=== PATIENT | female | born 1935 | race Caucasian/White ===

== ENCOUNTER 2020-04-06 23:57 | Emergency (ER) | payer MEDICARE, SELFPAY ==
--- NOTE | ~2020-04-06 | XR_ITS ---
XR chest 1V portable 04/07/2020 00:45 Indication: Weakness and dyspnea Procedure: AP portable chest Comparison: 07/13/2018 Findings: There is a masslike density in the left lung base, suspicious for malignancy. Heart size no rmal. Right lung clear. No significant effusion or pneumothorax. There are surgical clips in the left axilla. Impression: 1: Masslike density in the left lower lung zone at the left cardiophrenic angle. Differential diagnos is includes focal airspace consolidation although malignancy is not excluded. Consider correlation [facility] CT. Reviewed, dictated and finalized at location A. MCORN THRESHER Impression: 1: Masslike density in the left lower lung zone at the left cardiophrenic angle . Differential diagnosis includes focal airspace consolidation although maligna ncy is not excluded. Consider correlation with CT.
--- NOTE | ~2020-04-06 | CT_ITS ---
EXAMINATION: CT abdomen pelvis wo con DATE: 04/07/2020 00:47 INDICATION: Lower abdominal pain. Back pain. Necrosis to the left foot. TECHNIQUE: Computed tomography (CT) of the abdomen and pelvis was performed without intravenous contr ast. The dose-length product was 406.07 mGy-cm. Automated exposure control and iterative reconstructi on technique were employed. COMPARISON: CT dated 08/01/2018 FINDINGS: Heart size is normal. There is an enlarging mass in the left lower lobe abutting the fissur e measuring 5.3 cm maximum dimension. There is a 9 mm right lower lobe nodule, new, suspicious for me tastatic disease. There is an infrarenal abdominal aortic aneurysm measuring 3.1 cm. The liver, spleen, pancreas, left adrenal gland are unremarkable. There is a small 1.4 cm right adren al gland, likely benign adenoma. Gallbladder is present. There are calcified granulomas in the liver and spleen. Colonic diverticula particularly cyst without evidence for diverticulitis. There is sever e stenosis of the left common iliac and bilateral external iliac arteries and the common femoral liya scott. Occlusion cannot be excluded without contrast. There is coronary atherosclerosis. There are chr onic compression fractures of T11 and L2. There is multilevel anterolisthesis at L3-S1. IMPRESSION: 1. Enlarging left lower lobe mass measuring 5.3 cm, suspicious for bronchogenic carcinoma. New 9 mm r ight lower lobe nodule, possibly metastatic disease. 2: Infrarenal abdominal aortic aneurysm measuring 3.1 cm with extensive atherosclerosis throughout th e abdomen. Reviewed, dictated and finalized at location A. D DESIGNER IMPRESSION: 1. Enlarging left lower lobe mass measuring 5.3 cm, suspicious for bronchogenic carcinoma. New 9 mm right lower lobe nodule, possibly metastatic disease. 2: Infrarenal abdominal aortic aneurysm measuring 3.1 cm with extensive atheros clerosis throughout the abdomen.
[2020-04-06 23:55] VITALS: BP 94/57; PULSE 93; RESP 20; TEMP 36.6; O2SAT 94
[2020-04-07] VITALS (8 sets, daily range): BP systolic 91–141; BP diastolic 51–73; PULSE 75–98; RESP 13–18; TEMP 36.8; O2SAT 93–99
--- NOTE | 2020-04-07 00:10 | ECG_ITS ---
Measurements Intervals [place] Rate: 91 P: 59 CA: 124 QRS: 30 QRSD: 74 T: 66 QT: 363 QTc: 448 Interpretive Statements SINUS RHYTHM WITH SINUS ARRHYTHMIA ATRIAL PREMATURE COMPLEXES LOW QRS VOLTAGE IN PRECORDIAL LEADS CANNOT RULE OUT SEPTAL INFARCT, AGE INDETERMINATE BORDERLINE ST-T WAVE ABNORMALITY- INF/HIGH LAT LEADS BASELINE ARTIFACT- I, III, AVR, AVL, AVF, V3-V6 ABNORMAL ECG Electronically Signed On 04-07-2020 7:17:07 [employer]PER[employer] by Edgard Cerda D.O.
[2020-04-07] MEDS: SODIUM CHLORIDE 0.9% IV 1,000 ML 999 ML IV CONT ×2 (00:27→01:59)
[2020-04-07] MEDS: MORPHINE SULFATE (*CRX) 4 MG/ML INJ IV PUSH (00:27)
[2020-04-07] MEDS: ONDANSETRON INJ 4 MG/2 ML VIAL IV PUSH (00:27)
[2020-04-07 00:30] LABS: Basophils Percent Auto 0.4 % (0.2-1.2); Eosinophils Absolute Auto 0.1 K/mm3 (0-0.3); Eosinophils Percent Auto 0.5 % (0-4.4); Hematocrit 25.5 % (37.0-47.0); Hemoglobin 7.1 g/dL (12.0-15.0); Immature Granulocyte Absolute 0.23 K/mm3 (0.00-0.031); Immature Granulocyte Percent A 2.1 % (0-0.5); Lymphocytes Absolute Auto 0.52 K/mm3 (0.9-3.2); Lymphocytes Percent Auto 4.7 % (18.3-44.2); Mean Corpuscular HGB Conc 27.8 g/dl (32-36); Mean Corpuscular Hemoglobin 25.1 pg (26-34); Mean Corpuscular Volume 90.1 fl (80-100); Mean Platelet Volume 10.2 fl (7.4-10.4); Monocytes Absolute Auto 1.2 K/mm3 (0.1-0.6); Neutrophils Absolute Auto 9.1 K/mm3 (1.3-6.7); Neutrophils Percent Auto 81.3 % (45.5-73.1); Nucleated Red Blood Cells Absolute Auto 0.1 K/mm3 (0.0-0.012); Platelet Count Result 453 k/mm3 (150-375); Red Blood Count 2.83 M/mm3 (4.2-5.4); Red Cell Distribution Width 18.9 % (11.5-14.5); White Blood Count 11.2 K/mm3 (4.5-10.0)
[2020-04-07 00:40] LABS: Prothrombin Time 14.1 Seconds (11.1-14.7)
[2020-04-07 00:41] LABS: Partial Thromboplastin Time 30.8 SECONDS (22.3-36.8)
--- NOTE | 2020-04-07 00:42 | PC.NURSE ---
Patient in CT at this time.
--- NOTE | 2020-04-07 00:49 | PC.NURSE ---
Patient's bedside glucose is 113.
[2020-04-07 00:55] LABS: Atypical Lymphocytes Present; Platelet Estimate Adequate (Adequate)
[2020-04-07 00:56] LABS: Anisocytosis 1+ (NORMAL)
[2020-04-07 01:02] LABS: Glucose Point of Care 113 (65-105)
[2020-04-07 01:03] LABS: Alanine Aminotransferase 32 U/L (4-35); Albumin Level 3.5 g/dL (3.5-5.1); Alkaline Phosphatase 133 U/L (38-126); Anion Gap 13 mmol/L (8-16); Aspartate Amino Transferase 84 U/L (14-36); Bilirubin,Total 0.5 mg/dL (0.2-1.3); Blood Urea Nitrogen 55 mg/dL (7-17); CRP 13.4 mg/dL (<1.0); Calcium 9.5 mg/dL (8.4-10.2); Carbon Dioxide 20 mmol/L (22-30); Chloride 106 mmol/L (98-107); Creatine Kinase 1033 U/L (30-135); Estimated CRCL calculation 9 ml/min; Estimated Glomerular Filt Rate 14; Glucose 103 mg/dL (65-105); Lipase 133 U/L (23-300); Magnesium 1.8 mg/dL (1.6-2.3); Potassium 5.1 mmol/L (3.4-5.0); Sodium 139 mmol/L (137-145)
[2020-04-07] MEDS: HYDROmorphone HCL INJ (*CRX) 1 MG/ML SYR 0.5 MG IV PUSH (01:09)
[2020-04-07 01:17] LABS: Add Urine Microscopic? YES; Appearance Urine Clear (Clear); Bilirubin Urine Negative (Negative); Blood Urine 1+ (Negative); Color Urine Yellow (Yellow); Glucose Urine UA Negative (Negative); Ketones Urine Negative (Negative); Leukocyte Esterase Ur Negative LEU/UL (Negative); Mucus Urine Rare /lpf; Nitrate Urine Negative (Negative); Protein Urine Negative (Negative); Specific Grav Ur 1.012 (1.001-1.035); Squamous Epithelial Cell Urine Rare /hpf (Few); Urobilinogen Urine Negative mg/dL (<2.0); WBC Urine 0-3 /hpf
--- NOTE | 2020-04-07 01:22 | ED.GENADULT ---
HPI - General Adult General Chief complaint: Extremity Injury, Lower Stated complaint: necrotic toes Source: patient and family Limitations: other (patient in pain, difficulty historian) History of Present Illness HPI narrative: This patient is an 84 year old female with history of multiple medical problems who presents for evaluation left foot discoloration and severe pain. She reports her left toes have been black for 3 weeks. She has been been walking in 3 weeks. She states she finally came in tonight because she was having severe pain . She has having severe abdominal pain and back pain. She reports nausea but denies vomiting. SHe states she has not been eating , so she has lost weight. Her reports she has been told she has poor circulation but she refused vascular consult. Related Data Allergies Allergy/AdvReac Type Severity Reaction Status Date / Time tiotropium Allergy Intermediate Unknown Verified 04/07/20 00:31 Sulfa (Sulfonamide Allergy Unknown Unknown Verified 04/07/20 00:31 Antibiotics) sulfanilamide Allergy Unknown Unknown Verified 04/07/20 00:31 Review of Systems Review of Systems: All systems reviewed & are unremarkable except as noted in HPI and below Constitutional: Constitutional: Denies chills and Denies fever(s) Cardiovascular: Cardiovascular: Denies chest pain Respiratory: Respiratory: Denies cough and Denies dyspnea Gastrointestinal: Gastrointestinal: Reports abdominal pain, Reports constipation, Reports nausea and Denies vomiting Genitourinary: Comments: decreased urination Musculoskeletal: Musculoskeletal: Reports back pain and Reports arthralgias [facility] Past Medical History Medical History Aneurysm of infrarenal abdominal aorta Breast cancer Chronic calcific pancreatitis Chronic pain Chronic pain disorder Compression fracture of L2 COPD (chronic obstructive pulmonary disease) Coronary artery calcification of [place] artery Hepatic steatosis PVD (peripheral vascular disease) with claudication Surgical History Surgical History H/O left mastectomy Social History Social History (Updated 02/08/20 @ 15:06 by Allegra Klein) Social History: Smoking status: Former smoker Second hand tobacco smoke exposure: No Smoking end date: 03/22/1965 Alcohol intake: never Substance use: never Substance use type: does not use Gender identity (if verbalized by the patient): Female Exam Const: General: alert and ill appearing Orientation/consciousness: patient oriented x3 Other: severe distress due to pain Eyes: EOM: EOMs intact bilaterally Resp: Effort & Inspection: normal respiratory effort Auscultation: clear to auscultation bilaterally Cardio: Rate: regular rate Rhythm: regular rhythm Other: right foot able to doppler right PT; left foot unable to doppler pedal pulses, able to doppler left popliteal and left femoral GI: Inspection: distended GI Palp: Yes Soft to palpation, Yes Tenderness to palpation present (GI) (Diffuse), No Guarding due to palpation present (GI) and No Rebound tenderness present Auscultation: normal bowel sounds Neuro: General: patient oriented x3 Extrem: Other: left left mottling from foot to knee; all toes on left foot black, hard, ulceration left anterior ankle Course Reevaluation(s) Reevaluation #1: I discussed with patient that she needs to be transferred higher level of care for evaluation by vascular surgery. She is agreeable to transfer for evaluation of ischemia and possible intervention. She states she is DNR, DNI . is at bedside and he agrees she is DNR/DNI Date: 04/07/20 Time: 01:30 Consultations Consultation #1: I spoke with Dr Delfina Forrester about labs and CT findings. He agrees to hold off on heparin since patient is anemic and guaic positive. He will assess in ER. I also spoke with EDP at [place]
[2020-04-07 01:36] LABS: Lactic Acid Reflex 4.4 mmol/L (0.7-2.1)
--- NOTE | 2020-04-07 02:02 | PC.NURSE ---
DELMIB per ERP to hold heparin at this time.
--- NOTE | 2020-04-07 02:24 | PC.NURSE ---
Addendum entered by Nadya Mckinnon 04/07/20 02:32: [facility] called and accepted. ETA 15-20 minutes. Coming from [place] Original Note: called [facility] to request transport. ETA 0330 Called [facility] to request transport. declined
[2020-04-07 04:05] LABS: Reflex Lactic Acid Yes or No Add Lactic
== END 2020-04-07 02:59 | disposition short-term general hospital (02) ==
PROVIDERS: Emergency Provider General Practice; PCP Family Medicine
DX: I73.9 Peripheral vascular disease, unspecified (principal); I99.8 Other disorder of circulatory system; D64.9 Anemia, unspecified; N17.9 Acute kidney failure, unspecified; N18.9 Chronic kidney disease, unspecified; Z85.3 Personal history of malignant neoplasm of breast; J44.9 Chronic obstructive pulmonary disease, unspecified; G89.4 Chronic pain syndrome; Z87.891 Personal history of nicotine dependence; Z90.10 Acquired absence of unspecified breast and nipple; R91.8 Other nonspecific abnormal finding of lung field; I71.4 Abdominal aortic aneurysm, without rupture
CPT/HCPCS: 36415; 51702; 71045; 74176; 80053; 81001; 82550; 82948; 83605; 83690; 83735; 85025; 85610; 85730; 86140; 86850; 86900; 86901; 87040; 93005; 96361; 96365; 96375; 99285; J1170; J2270; J2405; J2543; J7030